=== PATIENT | male | born 1990 | race African-American/Black ===

== ENCOUNTER 2019-01-25 18:46 | Emergency (ER) | payer BC, MEDICAID ==
[~2019-01-25] VITALS: Ht 185.4 cm; Wt 145.1 kg
[2019-01-25 19:40] VITALS: BP 122/80
--- NOTE | 2019-01-25 19:42 | NUR ---
PT TO ER LOBBY VIA W/C IN STABLE CONDITION.
--- NOTE | 2019-01-25 20:21 | NUR ---
PT TAKEN TO XRAY FROM MICHAEL CALDERÓN
--- NOTE | 2019-01-25 21:10 | NUR ---
ASSUMED CARE OF PT AT THIS TIME. C/O RIGHT ANKLE/KNEE S/P INJURY WHILE PLAYING BASKETBALL X 2 HOURS AGO. AAOX4 WITH EVEN AND STEADY GAIT; PATIENT STATES PAIN OF 10/10; VSS; ER MD MADE AWARE OF PT STATUS. WILL CONTINUE TO MONITOR.
--- NOTE | 2019-01-25 21:10 | NUR ---
PT TAKEN TO CHAIR E
[2019-01-25] MEDS ORDERED: KETOROLAC 60 MG/2 ML VIAL IM ONE (21:35)
[2019-01-25] MEDS ORDERED: HYDROcodone/APAP 5/325 MG 1 TAB TAB PO ONE (21:35)
--- NOTE | 2019-01-25 21:39 | NUR ---
PA WITH PT
[2019-01-25 21:55] VITALS: BP 124/81
--- NOTE | 2019-01-25 21:55 | NUR ---
Patient discharged with v/s stable. Written and verbal after care instructions given and explained. Patient alert, oriented and verbalized understanding of instructions. Wheel Chair Assisted with to car. All questions addressed prior to discharge. ID band removed. Patient advised to follow up with PMD. Rx of MOTRIN AND NORCO given. Patient educated on indication of medication including possible reaction and side effects. Opportunity to ask questions provided and answered.
--- NOTE | 2019-01-25 21:59 | NUR ---
placed a knee immobilizer on PT's right knee. Instructed PT on how to use crutches as well.
== END 2019-01-25 21:55 | disposition home or self-care (01) ==
LOC: MED 18:46
DX: S83.411A Sprain of medial collateral ligament of right knee, initial encounter (principal); W22.8XXA Striking against or struck by other objects, initial encounter; S93.401A Sprain of unspecified ligament of right ankle, initial encounter; Y93.67 Activity, basketball; Y92.89 Other specified places as the place of occurrence of the external cause; Y99.8 Other external cause status
CPT/HCPCS: 29505; 73562; 73610; 96372; 99283; J1885